=== PATIENT | female | born 1945 | race Caucasian/White ===

== ENCOUNTER 2016-10-29 11:58 | Inpatient (IN) | payer MEDICARE, OTHER ==
[~2016-10-29] VITALS: Ht 165.1 cm; Wt 77.0 kg
[~2016-10-29 11:58] MED LIST: LANS30CA PO; LORA-186 PO; abdominal binder
--- NOTE | 2016-10-29 12:11 | ERA ---
ER Documentation Chief Complaint Date/Time DATE: 10/29/16 TIME: 12:11 Chief Complaint CHEST PAIN, BILAT ARM NUMBNESS &WEAKNESS, FATIGUE S/P TOTAL KNEE REPLACEMEN HPI The patient is a 71-year-old female, presenting to the ER because of feeling fatigued, bilateral hands and bilateral feet tingling for 2 days, dyspnea and chest tightness for 1 day. She also complained of vague diffuse abdominal discomfort with vomiting today, associated with constipation. She complains of dizziness, better when she closes her eye. She denies fever, chills, neck pain , chest pain with exertion of vomiting or diaphoresis, dysuria, diarrhea. She does not smoke nor drink. She had left knee arthroplasty about 10 days ago Past medical history: GERD, hypertension Past surgical history: Hysterectomy, vaginal and rectal prolapse, ROS All systems reviewed and are negative except as per history of present illness. Medications Home Meds Reported Medications Ondansetron Hcl* (Zofran*) 4 Mg Tab, 4 MG PO Q4H Y for NAUSEA AND OR VOMITING, TAB 10/29/16 Docusate Sodium (Col-Rite) 100 Mg Capsule, 200 MG PO DAILY, CAP 10/29/16 Famotidine* (Famotidine*) 20 Mg Tablet, 20 MG PO BID, #60 TAB 10/29/16 Tapentadol Hcl (Nucynta) 50 Mg Tablet, 50 MG PO Q4 Y for PAIN LEVEL 6-10, TAB 10/29/16 Olmesartan Medoxomil (Benicar) 20 Mg Tablet, 20 MG PO DAILY, #30 TAB 10/29/16 Gabapentin* (Gabapentin*) 100 Mg Capsule, 200 MG PO TID, #180 CAP 10/29/16 Discontinued Reported Medications Lansoprazole* (Lansoprazole*) 30 Mg Capsule.dr, 30 MG PO DAILY, CAP 02/03/15 Loratadine* (Claritin*) 10 Mg Tablet, 10 MG PO DAILY, TAB 02/03/15 Discontinued Scripts [abdominal binder] No Conflict Check Prov:MARK UECEDA MD 02/07/15 Allergies Allergies: Coded Allergies: codeine (Verified Allergy, Unknown, confusion, 02/04/15) Uncoded Allergies: ADHESIVE TAPE (Allergy, Severe, BLISTERS, 02/04/15) CT CONTRAST (Allergy, Severe, ANAPHYLAXIS, 02/04/15) IV IODINE (Allergy, Severe, ANAPHYLAXIS, 02/04/15) TOPICAL IODINE IS OK NUCLEAR MED CONTRAST (Allergy, Severe, ANAPHYLAXIS, 02/04/15) statin (Allergy, Unknown, severe pain, 02/04/15) PMhx/Soc History of Surgery: Yes (LUMBAR SPINE SURGERY,PARTIAL HYSTERECTOMY,APPENDECTOMY ) Anesthesia Reaction: No Hx Neurological Disorder: No Hx Respiratory Disorders: No Hx Cardiac Disorders: Yes (HYPERLIPIDEMIA) Hx Psychiatric Problems: No Hx Miscellaneous Medical Probl: Yes (VAGINAL AND RECTAL PROLAPSE REPAIR, CERVICAL CA) Hx Alcohol Use: Yes (1-2 GLASSES OF WINE DAILY) Hx Substance Use: No Hx Tobacco Use: No Physical Exam Vitals Vital Signs Date Time Temp Pulse Resp B/P Pulse Ox O2 Delivery O2 Flow Rate FiO2 10/29/16 12:24 Nasal Cannula 10/29/16 12:01 98.1 113 20 159/70 100 Physical Exam Const: No acute distress. Head: Atraumatic. Eyes: Normal Conjunctiva. ENT: Normal External Ears, Nose and Mouth. Neck: Full range of motion. No meningismus. Resp: Clear to auscultation bilaterally. Cardio: Regular tachycardic Abd: Soft, non distended, normal bowel sounds, non tender. Skin: No petechiae or rashes. Back: No midline or flank tenderness. Ext: Left knee is edematous, warm to touch, calf tenderness Neur: Awake and alert. No focal deficit Psych: Normal Mood and Affect. Result Diagram: 10/29/16 1230 10/29/16 1230 Results 24 hrs Laboratory Tests Test 10/29/16 12:30 10/29/16 13:42 White Blood Count 11.510^3/ul Red Blood Count 3.4610^6/ul Hemoglobin 9.4g/dl Hematocrit 28.9% Mean Corpuscular Volume 83.5fl Mean Corpuscular Hemoglobin 27.2pg Mean Corpuscular Hemoglobin Concent 32.5g/dl Red Cell Distribution Width 15.9% Platelet Count 24830^3/UL Mean Platelet Volume 9.0fl Neutrophils % 71.5% Lymphocytes % 15.9% Monocytes % 9.7% Eosinophils % 1.6% Basophils % 0.3% Nucleated Red Blood Cells % 0.0/100WBC Neutrophils # 8.210^3/ul Lymphocytes # 1.810^3/ul Monocytes # 1.110^3/ul Eosinophils # 0.210^3/ul Basophils # 0.010^3/ul Nucleated Red Blood Cells # 0.010^3/ul Prothrombin Time 13.0Sec Prothrombin Time Ratio 1.0 INR International Normalized Ratio 0.98 Activated Partial Thromboplast Time 31.4Sec D-Dimer 9884.41ng/ml D-Dimer Comment Sodium Level 128mmol/L Potassium Level 4.5mmol/L Chloride Level 93mmol/L Carbon Dioxide Level 26mmol/L Anion Gap 14 Blood Urea Nitrogen 14mg/dl Creatinine 0.71mg/dl Glucose Level 104mg/dl Calcium Level 9.5mg/dl Total Bilirubin 0.2mg/dl Direct Bilirubin 0.00mg/dl Indirect Bilirubin 0.2mg/dl Aspartate Amino Transf (AST/SGOT) 26IU/L Alanine Aminotransferase (ALT/SGPT) 27IU/L Alkaline Phosphatase 92IU/L Troponin I < 0.012ng/ml Total Protein 7.5g/dl Albumin 4.5g/dl Globulin 3.00g/dl Albumin/Globulin Ratio 1.50 Lipase 27U/L Bedside Urine pH (LAB) 7.0 Bedside Urine Protein (LAB) Negative Bedside Urine Glucose (UA) Negative Bedside Urine Ketones (LAB) Negative Bedside Urine Blood Negative Bedside Urine Nitrite (LAB) Negative Bedside Urine Leukocyte Esterase (L Negative Current Medications Medications (Trade) Dose Ordered Sig/Yen Route PRN Reason Start Time Stop Time Status Last Admin Dose Admin Iohexol (Omnipaque) 0 ml @ ud STK-MED ONCE .ROUTE 10/29/16 14:57 10/29/16 14:58 DC IV Flush (NS 10 ml) 10 ml STK-MED ONCE .ROUTE 10/29/16 14:57 10/29/16 14:58 DC Ondansetron HCl (Zofran Inj) 4 mg ONCE STAT IV 10/29/16 15:21 10/29/16 15:22 DC 10/29/16 15:25 Ondansetron HCl 4 mg 4 mg STK-MED ONCE .ROUTE 10/29/16 15:22 10/29/16 15:23 DC Acetaminophen 100 ml @ 400 mls/hr ONCE ONCE IVPB 10/29/16 15:30 10/29/16 15:44 DC 10/29/16 16:14 Piperacillin Sod/ Tazobactam Sod (Zosyn 3.375gm/ 100 ml (Pmx)) 100 ml @ 200 mls/hr ONCE ONCE IVPB 10/29/16 16:00 10/29/16 16:29 DC 10/29/16 15:59 Alprazolam (Xanax) 0.25 mg ONCE ONCE PO 10/29/16 16:00 10/29/16 16:01 DC 10/29/16 15:58 Enoxaparin Sodium (Lovenox) 80 mg ONCE SC 10/29/16 18:00 Procedures/MDM [place] [address] Radiology Main Line: [phone] DIAGNOSTIC IMAGING REPORT Patient: RISSA MICHEL : 1945 Age: 71 Sex: F MR #: [id number] DOS: 10/29/16 1211 Ordering MD: NUBIA LEONG MD Location: E/R Room/Bed: PROCEDURE: CHEST 1VW CLINICAL INDICATION: Chest pain TECHNIQUE: Single frontal view of the chest was obtained COMPARISON: 04/21/2014 FINDINGS: The cardiac size is normal. Mild atherosclerotic calcifications are demonstrated. There is no pulmonary vascular congestion. The lungs are clear. No consolidation, effusion, or pneumothorax. Mild degenerative changes of the visualized osseous structures are visualized. IMPRESSION: 1. No acute cardiopulmonary process. 2. Atherosclerosis. RPTAT:PP .Sage Lawson MD, Date Time Electronically viewed and signed by .Sage Lawson MD, on 10/29/2016 13:17 .V/ CC: NUBIA LEONG MD [place] [address] Radiology Main Line: [phone] DIAGNOSTIC IMAGING REPORT Patient: RISSA MICHEL : 1945 Age: 71 Sex: F MR #: [id number] DOS: 10/29/16 1225 Ordering MD: NUBIA LEONG MD Location: E/R Room/Bed: PROCEDURE: US left lower extremity veins. CLINICAL INDICATION: Left leg pain and swelling. Left total knee arthroplasty. TECHNIQUE: Multiple longitudinal and transverse images of the left lower extremity veins were obtained with walsh scale and color Doppler imaging. The common femoral vein, femoral vein, and popliteal vein were evaluated. 2D grayscale measurements with compression sonography, pulsed Doppler, color Doppler, and pulsed Doppler with augmentation. COMPARISON: No prior studies are available for comparison. FINDINGS: The left common femoral, femoral and popliteal veins are normally compressible throughout. Color flow demonstrates normal filling of the vessels. Normal waveforms are visualized and there is normal response to augmentation. IMPRESSION: 1. No evidence of deep vein thrombosis involving the left lower extremity. RPTAT: QQ .Jaden Cruz MD, MD Date Time Electronically viewed and signed by .Jaden Cruz MD, on 10/29/2016 13:45 .R/ CC: NUBIA LEONG MD [place] [address] Radiology Main Line: [phone] DIAGNOSTIC IMAGING REPORT Patient: RISSA MICHEL : 1945 Age: 71 Sex: F MR #: [id number] DOS: 10/29/16 1232 Ordering MD: NUBIA LEONG MD Location: E/R Room/Bed: PROCEDURE: XR Knee. CLINICAL INDICATION: Left knee pain TECHNIQUE: 3 images of the left knee are available for review. COMPARISON: None available FINDINGS: There is a total left knee arthroplasty in anatomic alignment. There is no evidence of acute fracture. Alignment is normal. Joint spaces are preserved. There is a small knee joint effusion. IMPRESSION: 1. No radiographic evidence of acute osseous abnormality noting a total left knee arthroplasty in anatomic alignment. 2. Small nonspecific knee joint effusion. RPTAT: UU .Vinicius Allison MD, MD Date Time Electronically viewed and signed by .Vinicius Allison MD, on 10/29/2016 13: 11 .K/ CC: NUBIA LEONG MD [place] [address] Radiology Main Line: [phone] DIAGNOSTIC IMAGING REPORT Patient: RISSA MICHEL : 1945 Age: 71 Sex: F MR #: [id number] DOS: 10/29/16 1447 Ordering MD: NUBIA LEONG MD Location: E/R Room/Bed: PROCEDURE: CT Brain without contrast. CLINICAL INDICATION: Headaches. Neurologic deficit TECHNIQUE: A CT of the brain was performed on multidetector high-resolution CT scanner utilizing axial sections from the skull base through the vertex without contrast. One or more of the following dose reduction techniques were used: Automated exposure control, Adjustment of the mA and/or kV according to patient size, and/or use of iterative reconstruction technique. DOSE: CTDI = 43 mGy and the DLP = 720 mGy-cm. COMPARISON: None available FINDINGS: No acute intracranial hemorrhage, significant mass effect or midline shift. The walsh-white differentiation is grossly preserved. Prominence of the cortical sulci and ventricles are related to mild cerebral volume loss. No significant opacification of the visualized paranasal sinuses or mastoids. IMPRESSION: No acute intracranial findings. Mild volume loss. RPTAT: AA .Mahendra Blackman MD, MD Date Time Electronically viewed and signed by .Mahendra Blackman MD, MD on 10/29/2016 15:34 .T/ CC: NUBIA LEONG MD [place] [address] Radiology Main Line: [phone] DIAGNOSTIC IMAGING REPORT Patient: RISSA MICHEL : 1945 Age: 71 Sex: F MR #: [id number] DOS: 10/29/16 1448 Ordering MD: NUBIA LEONG MD Location: E/R Room/Bed: PROCEDURE: CT Abdomen and Pelvis without contrast. CLINICAL INDICATION: Abdominal pain TECHNIQUE: CT scan of the abdomen and pelvis was performed on a multidetector high-resolution CT scanner without intravenous contrast. Coronal and sagittal reformatted images were obtained from the axial source images. Images were reviewed on a high-resolution PACS workstation. The total exam CTDI equals 17mGy and the total exam DLP equals 1031mGy-cm. One or more of the following dose reduction techniques were used: Automated exposure control, Adjustment of the mA and/or kV according to patient size, and/or use of iterative reconstruction technique. COMPARISON: None. FINDINGS: Evaluation of the solid organs is limited given the lack of intravenous contrast administration. The lung bases are clear. The liver, pancreas, spleen, and adrenals are grossly unremarkable. No focal pericholecystic inflammatory changes. No hydronephrosis. No renal or ureteral stone. No bowel obstruction. Appendix is not visualized. Colonic diverticulosis with pericolonic inflammatory stranding surrounding the distal descending colon. No drainable loculated fluid collection identified. No retroperitoneal lymphadenopathy or evidence of pneumoperitoneum. Aortoiliac atherosclerosis. Uterus is absent. Status post anterior interbody and posterior fusion L2-3 through L4-5. IMPRESSION: Acute distal descending colonic diverticulitis. No evidence of a drainable abscess. RPTAT: AA .Mahendra Blackman MD, Date Time Electronically viewed and signed by .Mahendra Blackman MD, on 10/29/2016 15:37 .T/ CC: NUBIA LEONG MD EKG: Read by emergency physician Rate/Rhythm: Sinus tachycardia 112 beats/min QRS, ST, T-waves: No ST elevation, no T inversion Impression: Abnormal EKG MEDICAL MAKING DECISION: The patient is a 71-year-old female, presenting with acute dizziness and headache of unclear etiology, acute diverticulitis, acute elevated d-dimer that is concerning for acute pulmonary embolism, acute hyponatremia, acute anxiety. She was treated with Zofran formalin IV for nausea , she requested Tylenol IV for her headache with good response, she was treated with Xanax 0.25 mg p.o. for acute anxiety and Zosyn IV for acute diverticulitis. She could not have CT angiogram due to a pulmonary embolism due to severe allergic reaction to CT contrast, VQ scan is pending to rule out pulmonary embolism. After discussing with admitting physician Dr. Moctezuma, who recommended Lovenox subcutaneously for probable acute pulmonary embolism Consultation: I did get a present with her general surgeon Dr. Euceda, who was made aware of the lab, treatment, the patient treatment. He accepted the consult Departure Diagnosis: Primary Impression: Dizziness Additional Impressions: Diverticulitis Hyponatremia Elevated d-dimer Anxiety Anemia Condition: Stable Comments I discussed the findings with the patient. I discussed the patient with her physician Dr. Moctezuma who was made aware of the lab, the treatment, the patient condition. The patient is admitted to laboratory at 5:40 PM The patient's blood pressure was elevated (>120/80) but appears stable without evidence of hypertension emergency or urgency. The patient was counseled about the risks of hypertension and urged to pursue outpatient monitoring and therapy within a week with their primary care physician. NUBIA LEONG MD Oct 29, 2016 12:11
[2016-10-29 12:46] LABS: ADD SCAN DIFF NO
[2016-10-29 12:47] LABS: BASOPHILS % 0.3 % (0.0-2.0); EOSINOPHILS # 0.2 10^3/ul (0.0-0.5); EOSINOPHILS % 1.6 % (0.0-7.0); HEMATOCRIT 28.9 % (37.0-47.0); HEMOGLOBIN 9.4 g/dl (12.0-16.0); LYMPHOCYTES # 1.8 10^3/ul (0.8-2.9); LYMPHOCYTES % 15.9 % (15.0-51.0); MEAN CORPUSCULAR HEMOGLOBIN 27.2 pg (29.0-33.0); MEAN CORPUSCULAR HGB CONC 32.5 g/dl (32.0-37.0); MEAN CORPUSCULAR VOLUME 83.5 fl (82.0-101.0); MONOCYTE # 1.1 10^3/ul (0.3-0.9); MONOCYTES % 9.7 % (0.0-11.0); NEUTROPHIL # 8.2 10^3/ul (1.6-7.5); NEUTROPHILS % 71.5 % (39.0-77.0); PLATELET COUNT 552 10^3/UL (140-415); RED BLOOD COUNT 3.46 10^6/ul (4.20-5.40); RED CELL DISTRIBUTION WIDTH 15.9 % (11.5-14.5); WHITE BLOOD COUNT 11.5 10^3/ul (4.8-10.8)
[2016-10-29] MEDS ORDERED: OLME20TA20 PO (13:01)
[2016-10-29] MEDS ORDERED: TAPE50TA5 PO (13:01)
[2016-10-29] MEDS ORDERED: FAMO20TA18 PO (13:01)
[2016-10-29] MEDS ORDERED: GABA100C14 PO (13:01)
[2016-10-29] MEDS ORDERED: DOCU100C59 PO (13:01)
[2016-10-29] MEDS ORDERED: ONDA-43 PO (13:02)
--- NOTE | 2016-10-29 13:11 | RADRPT ---
PROCEDURE: XR Knee. CLINICAL INDICATION: Left knee pain TECHNIQUE: 3 images of the left knee are available for review. COMPARISON: None available FINDINGS: There is a total left knee arthroplasty in anatomic alignment. There is no evidence of acute fractu re. Alignment is normal. Joint spaces are preserved. There is a small knee joint effusion. IMPRESSION: 1. No radiographic evidence of acute osseous abnormality noting a total left knee arthroplasty in an atomic alignment. 2. Small nonspecific knee joint effusion. RPTAT: UU .Vinicius Allison MD, MD Date Time Electronically viewed and signed by .Vinicius Allison MD, MD on 10/29/2016 13:11 .K/
[2016-10-29 13:17] LABS: INR 0.98; PARTIAL THROMBOPLASTIN TIME 31.4 Sec (25.0-35.0)
--- NOTE | 2016-10-29 13:18 | RADRPT ---
PROCEDURE: CHEST 1VW CLINICAL INDICATION: Chest pain TECHNIQUE: Single frontal view of the chest was obtained COMPARISON: 04/21/2014 FINDINGS: The cardiac size is normal. Mild atherosclerotic calcifications are demonstrated. There is no pulmonary vascular congestion. The lungs are clear. No consolidation, effusion, or pneumothorax. Mild degenerative changes of the visualized osseous structures are visualized. IMPRESSION: 1. No acute cardiopulmonary process. 2. Atherosclerosis. RPTAT:PP .Sage Lawson MD, MD Date Time Electronically viewed and signed by .Sage Lawson MD, on 10/29/2016 13:17 .V/
[2016-10-29 13:39] LABS: URINE BLOOD (Dip) POC Negative (NEGATIVE)
--- NOTE | 2016-10-29 13:45 | RADRPT ---
PROCEDURE: US left lower extremity veins. CLINICAL INDICATION: Left leg pain and swelling. Left total knee arthroplasty. TECHNIQUE: Multiple longitudinal and transverse images of the left lower extremity veins were obta ined with walsh scale and color Doppler imaging. The common femoral vein, femoral vein, and popliteal vein were evaluated. 2D grayscale measurements with compression sonography, pulsed Doppler, color D oppler, and pulsed Doppler with augmentation. COMPARISON: No prior studies are available for comparison. FINDINGS: The left common femoral, femoral and popliteal veins are normally compressible throughout. Color fl ow demonstrates normal filling of the vessels. Normal waveforms are visualized and there is normal response to augmentation. IMPRESSION: 1. No evidence of deep vein thrombosis involving the left lower extremity. RPTAT: QQ .Jaden Cruz MD, MD Date Time Electronically viewed and signed by .Jaden Cruz MD, MD on 10/29/2016 13:45 .R/
[2016-10-29 13:59] LABS: ALBUMIN 4.5 g/dl (3.3-4.9); ALBUMIN/GLOBULIN RATIO 1.5; BILIRUBIN,INDIRECT 0.2 mg/dl (0-1.1); BILIRUBIN,TOTAL 0.2 mg/dl (0.2-1.3); CALCIUM 9.5 mg/dl (8.4-10.2); CREATININE 0.71 mg/dl (0.44-1.00); POTASSIUM 4.5 mmol/L (3.5-5.1); TOTAL PROTEIN 7.5 g/dl (6.1-8.1)
[2016-10-29 14:54] LABS: D-DIMER 9884.41 ng/ml (<460)
[2016-10-29] MEDS ORDERED: IOHEXOL 0 ML ONE (14:57)
[2016-10-29] MEDS ORDERED: ONDANSETRON 4 MG INJ IV STA ×2 (15:21→18:48)
[2016-10-29] MEDS ORDERED: ONDANSETRON 4 MG INJ ONE (15:22)
[2016-10-29] MEDS ORDERED: ACETAMINOPHEN 1000MG/100ML IV 100 ML IVPB ONE (15:30)
--- NOTE | 2016-10-29 15:34 | RADRPT ---
PROCEDURE: CT Brain without contrast. CLINICAL INDICATION: Headaches. Neurologic deficit TECHNIQUE: A CT of the brain was performed on multidetector high-resolution CT scanner utilizing a xial sections from the skull base through the vertex without contrast. One or more of the following dose reduction techniques were used: Automated exposure control, Adjustment of the mA and/or kV acc ording to patient size, and/or use of iterative reconstruction technique. DOSE: CTDI = 43 mGy and the DLP = 720 mGy-cm. COMPARISON: None available FINDINGS: No acute intracranial hemorrhage, significant mass effect or midline shift. The walsh-white different iation is grossly preserved. Prominence of the cortical sulci and ventricles are related to mild cerebral volume loss. No significant opacification of the visualized paranasal sinuses or mastoids. IMPRESSION: No acute intracranial findings. Mild volume loss. RPTAT: AA .Mahendra Blackman MD, Date Time Electronically viewed and signed by .Mahendra Blackman MD, on 10/29/2016 15:34 .T/
--- NOTE | 2016-10-29 15:37 | RADRPT ---
PROCEDURE: CT Abdomen and Pelvis without contrast. CLINICAL INDICATION: Abdominal pain TECHNIQUE: CT scan of the abdomen and pelvis was performed on a multidetector high-resolution CT s canner without intravenous contrast. Coronal and sagittal reformatted images were obtained from the axial source images. Images were reviewed on a high-resolution PACS workstation. The total exam CTD I equals 17mGy and the total exam DLP equals 1031mGy-cm. One or more of the following dose reduction techniques were used: Automated exposure control, Adjustment of the mA and/or kV according to patie nt size, and/or use of iterative reconstruction technique. COMPARISON: None. FINDINGS: Evaluation of the solid organs is limited given the lack of intravenous contrast administration. The lung bases are clear. The liver, pancreas, spleen, and adrenals are grossly unremarkable. No focal pericholecystic inflammatory changes. No hydronephrosis. No renal or ureteral stone. No bowel obstruction. Appendix is not visualized. Colonic diverticulosis with pericolonic inflammat ory stranding surrounding the distal descending colon. No drainable loculated fluid collection iden tified. No retroperitoneal lymphadenopathy or evidence of pneumoperitoneum. Aortoiliac atherosclerosis. Uterus is absent. Status post anterior interbody and posterior fusion L2-3 through L4-5. IMPRESSION: Acute distal descending colonic diverticulitis. No evidence of a drainable abscess. RPTAT: AA .Mahendra Blackman MD, MD Date Time Electronically viewed and signed by .Mahendra Blackman MD, on 10/29/2016 15:37 .T/
[2016-10-29] MEDS ORDERED: PIPER-TAZO 3.375 GM IV (PMX) 100 ML IVPB ONE ×2 (16:00→21:00)
[2016-10-29] MEDS ORDERED: ALPRAZOLAM 0.25 MG TAB PO ONE (16:00)
[2016-10-29] MEDS ORDERED: ENOXAPARIN 80 MG/0.8 ML SYG SC SCH (18:00)
[2016-10-29] MEDS ORDERED: FENTAnyl 50 MCG/ML VIAL IV ONE (19:00)
--- NOTE | 2016-10-29 19:41 | RADRPT ---
PROCEDURE: Ventilation-perfusion scan CLINICAL INDICATION: Chest pain and shortness of breath. History of left knee arthroplasty TECHNIQUE: The lung perfusion scan is performed following the intravenous injection of 4 mCi techn etium 99m MAA and 8 standard imaging projections are acquired. The lung ventilation scan is performed following the inhalation of 1 mCi technetium 99m DTPA aerosol and 8 imaging projections are acquired. The images are submitted to the PACS for review. COMPARISON: Chest x-ray from 10/29/2016. FINDINGS: Homogeneous distribution of radiopharmaceutical a lung perfusion scan is identified with no mismatch ed defects to suggest pulmonary embolism. There is normal distribution of aerosol with no focal brayan tilation defects are identified. No mismatched defects are identified when correlated with the chest x-ray from same day. RPTAT:HJJR IMPRESSION: 1. Low probability for pulmonary embolism. Physician Micah Date Time Electronically viewed and signed by Physician Micah on 10/29/2016 19:41 /
[2016-10-29 19:47] LABS: CREATINE KINASE 24 IU/L (23-200)
[2016-10-29 20:00] LABS: TROPONIN-I < 0.012 ng/ml (0.00-0.12)
[2016-10-29] MEDS ORDERED: NACL 0.9% 3 ML SYG IV SCH (20:30)
[2016-10-29] MEDS: SOD CHLORIDE 0.9% 1,000 ML IV SCH (20:53)
[2016-10-29] MEDS ORDERED: ONDANSETRON 4 MG INJ IV PRN ×3 (21:00)
[2016-10-29] MEDS ORDERED: ACETAMINOPHEN 325 MG TAB PO PRN (21:00)
--- NOTE | 2016-10-29 21:00 | HP ---
DATE OF ADMISSION: 10/29/2016 CHIEF COMPLAINT: Chest pain, bilateral arm numbness and weakness. HISTORY OF PRESENT ILLNESS: This 71-year-old female came to the emergency room today because of multiple complaints. Those complaints included fatigue, bilateral hand and feet tingling for 2 days, dyspnea, chest pain on the left side of her chest. She also has some lower abdominal pain. She denies vomiting. She has had constipation and had a hard bowel movement 2 days ago, which she attributes is causing her abdominal pain. She also complains of some dizziness and headache. She denies fever, chills, neck pain, vomiting, diarrhea , dysuria. She is now 10 days postop a left total knee replacement by Dr. Carlos A Campbell at [facility]. PAST MEDICAL HISTORY: Remarkable for gastroesophageal reflux disease, hypertension, lower GI bleed in 1998, status post blood transfusion. She was told she had diverticulosis and has had 2 other bleeds, the last in 2003; hyperlipidemia. She had a CT calcium score of 0 in 07/2016. SURGICAL HISTORY: Hallux valgus 1979, right and left; vision correction, partial hysterectomy for cervical cancer, bilateral breast cysts, appendectomy in 1998, anterior, posterior vaginal and rectal prolapse repair in 1994, left knee arthroscopic surgery, ventral and periumbilical hernia repair in 01/2015, shoulder surgery in 2009. Lumbar spine surgery. FAMILY HISTORY: Father with known heart disease and hypercholesterolemia. Mother, colon cancer. Maternal grandmother heart disease. SOCIAL HISTORY: She does not smoke, does not use recreational drugs. She does drink alcohol 1 to 2 glasses of wine a day. CURRENT MEDICATIONS: Include the followin. Zofran 4 mg p.o. q.4 hours p.r.n. nausea or vomiting. 2. Docusate sodium 100 mg 2 capsules a day. 3. Famotidine 20 mg twice a day. 4. Nucynta 50 mg every 4 hours p.r.n. pain. 5. Olmesartan 20 mg a day. 6. Gabapentin 200 mg 3 times a day. MEDICATION THAT WAS DISCONTINUED: 1. Lansoprazole. 2. Loratadine. ALLERGIES: CODEINE AND SOME OTHER NARCOTICS CAUSE NAUSEA AND VOMITING. ALLERGIES TO CT CONTRAST MATERIAL. PHYSICAL EXAMINATION: GENERAL: At this time reveals an ill-appearing female in no apparent distress. VITAL SIGNS: Temperature 98.1, pulse of 113, respirations 20, blood pressure 159/70, O2 saturation 100% on room air. HEENT: Head normocephalic. Eyes: Extraocular muscles intact. NOSE AND MOUTH: Normal. NECK: Supple. No neck vein distention. LUNGS: Clear to auscultation. HEART: Regular rhythm. No murmurs, gallops, or rubs. ABDOMEN: Soft, but tender in both right and left lower quadrants. There is no rebound tenderness. Bowel sounds are active. EXTREMITIES: No peripheral edema. NEUROLOGIC: Grossly intact. LABORATORY DATA: White blood count 11,500; hemoglobin 9.4, hematocrit 28.9. Sodium 128, potassium 4.5, chloride 93, CO2 of 26, BUN 14, creatinine 0.7. Chest x-ray: No acute cardiopulmonary process. The patient did have a CAT scan of the abdomen in the emergency room, which was read as showing acute distal descending colonic diverticulitis, no evidence of a drainable abscess. A ventilation perfusion lung scan low probability for pulmonary embolism. Brain CT: No acute intracranial findings. Knee x-ray: No acute radiologic evidence of acute osseous abnormality noted and the left knee arthroplasty in anatomic alignment. Lower extremity venous study which did not show DVT. IMPRESSION: 1. Acute diverticulitis. 2. Left knee pain due to recent surgery. L Total Knee Replacement 3. Hyponatremia. 4. Anemia after surgery 10 days ago. 5. Hypertension. 6. Headache 7. Dizziness PLAN: 1. Admit to telemetry floor. 2. Lovenox to be given subcutaneous daily for DVT prophylaxis. 3. Antibiotics for diverticulitis. 4. Resume some routine medications. 5. Labs, troponin in a.m. 6. Urinalysis and urine electrolytes. 7. IV sodium chloride. 8. consult Dr Campbell , ortho Dictated By: KRISTAN MRATE MD, ND/SHENG Conf#: [id number] DID#: [id number] FRANCIS
[2016-10-29] MEDS: FAMOTIDINE 20 MG TAB PO SCH (21:31)
[2016-10-29] MEDS: GABAPENTIN 100 MG CAP PO SCH (21:44)
[2016-10-29] MEDS: FENTAnyl 50 MCG/ML VIAL IV PRN (22:43)
[2016-10-30] VITALS (11 sets, daily range): BP systolic 120–138; BP diastolic 58–70; PULSE 88–95; RESP 16–18; TEMP 98.7; Ht 165.1 cm; Wt 77.0 kg
[2016-10-30 01:42] LABS: CREATINE KINASE 22 IU/L (23-200)
[2016-10-30 01:56] LABS: CK-MB 0.47 ng/ml (0.0-2.4)
[2016-10-30 01:59] LABS: TROPONIN-I < 0.012 ng/ml (0.00-0.12)
[2016-10-30] MEDS: FENTAnyl 50 MCG/ML VIAL IV PRN (03:38)
[2016-10-30] MEDS: ACETAMINOPHEN 325 MG TAB PO PRN ×3 (06:33→20:29)
--- NOTE | 2016-10-30 08:02 | PN ---
Date/Time of Note Date/Time of Note DATE: 10/30/16 TIME: 07:51 Assessment/Plan VTE Prophylaxis VTE Prophylaxis Intervention: LMWH Lines/Catheters IV Catheter Type (from [facility]): Saline Lock Assessment/Plan Chief Complaint/Hosp Course 1. Acute diverticulitis , on antibiotics , less abdominal pain 2. L knee pain S/P TKR . Call Dr Campbell , start PT , start Nycenta 3. Hyponatremia , labs pending . 4. headache , CT scan of brain is negative Problems: Subjective 24 Hr Interval Summary Free Text/Dictation She is feeling better . Less abdominal pain . She still has a headache and L knee pain . Respiratory: no complaints Cardiovascular: no complaints Gastrointestinal: pain Musculoskeletal: bone/joint pain Exam/Review of Systems Vital Signs Vitals Vital Signs Date Time Temp Pulse Resp B/P Pulse Ox O2 Delivery O2 Flow Rate FiO2 10/30/16 05:30 97.9 90 18 129/67 97 Room Air Intake and Output 10/29/16 10/29/16 10/30/16 15:00 23:00 07:00 Intake Total 200 ml Balance 200 ml Exam L knee S/P L TKR Constitutional: alert, oriented, well developed Respiratory: clear to auscultation, normal air movement Cardiovascular: regular rate and rhythm Gastrointestinal: bowel sounds, soft, tender Musculoskeletal: nl extremities to inspection Results Result Diagram: 10/29/16 1230 10/29/16 1230 Results 24 hrs Laboratory Tests Test 10/29/16 12:30 10/29/16 13:42 10/29/16 18:49 10/30/16 00:26 White Blood Count 11.5 #H Red Blood Count 3.46 L Hemoglobin 9.4 L Hematocrit 28.9 L Mean Corpuscular Volume 83.5 Mean Corpuscular Hemoglobin 27.2 L Mean Corpuscular Hemoglobin Concent 32.5 Red Cell Distribution Width 15.9 H Platelet Count 552 H Mean Platelet Volume 9.0 Neutrophils % 71.5 Lymphocytes % 15.9 Monocytes % 9.7 Eosinophils % 1.6 Basophils % 0.3 Nucleated Red Blood Cells % 0.0 Neutrophils # 8.2 H Lymphocytes # 1.8 Monocytes # 1.1 H Eosinophils # 0.2 Basophils # 0.0 Nucleated Red Blood Cells # 0.0 Prothrombin Time 13.0 Prothrombin Time Ratio 1.0 INR International Normalized Ratio 0.98 Activated Partial Thromboplast Time 31.4 D-Dimer 9884.41 H D-Dimer Comment Sodium Level 128 L Potassium Level 4.5 Chloride Level 93 L Carbon Dioxide Level 26 Anion Gap 14 Blood Urea Nitrogen 14 Creatinine 0.71 Glucose Level 104 Calcium Level 9.5 Total Bilirubin 0.2 Direct Bilirubin 0.00 Indirect Bilirubin 0.2 Aspartate Amino Transf (AST/SGOT) 26 Alanine Aminotransferase (ALT/SGPT) 27 Alkaline Phosphatase 92 Troponin I < 0.012 < 0.012 < 0.012 Total Protein 7.5 Albumin 4.5 Globulin 3.00 Albumin/Globulin Ratio 1.50 Lipase 27 Bedside Urine pH (LAB) 7.0 Bedside Urine Protein (LAB) Negative Bedside Urine Glucose (UA) Negative Bedside Urine Ketones (LAB) Negative Bedside Urine Blood Negative Bedside Urine Nitrite (LAB) Negative Bedside Urine Leukocyte Esterase (L Negative Creatine Kinase 24 22 L Creatine Kinase Index 1.7 2.1 Creatinine Kinase MB (Mass) 0.40 0.47 Medications Medications Current Medications Sodium Chloride (NS) 1,000 ml @ 80 mls/hr [id number] IV Last administered on 10/29 20:53; Admin Dose 80 MLS/HR; Start 10/29/16 at 20:24 Enoxaparin Sodium (Lovenox) 40 mg DAILY SC ; Start 10/30/16 at 09:00 Docusate Sodium (Colace) 200 mg DAILY PO ; Start 10/30/16 at 09:00 Famotidine (Pepcid) 20 mg DAILY PO Last administered on 10/29/16 21:31; Admin Dose 20 MG; Start 10/29/16 at 21:00 Gabapentin (Neurontin) 200 mg TID PO Last administered on 10/29/16 21:44; Admin Dose 200 MG; Start 10/29/16 at 21:00 Losartan Potassium (Cozaar) 100 mg DAILY PO ; Start 10/30/16 at 09:00 Acetaminophen (Tylenol Tab) 650 mg Q4H PRN PO PAIN Last administered on 06:33; Admin Dose 650 MG; Start 10/29/16 at 21:00 Ondansetron HCl (Zofran Inj) 4 mg Q4H PRN IV NAUSEA AND/OR VOMITING; Start at 21:00 Fentanyl (Sublimaze) 25 mcg Q4H PRN IV SEVERE PAIN Last administered on t 03:38; Admin Dose 25 MCG; Start 10/29/16 at 21:00 KRISTAN MARTE MD Oct 30, 2016 08:02
--- NOTE | 2016-10-30 08:53 | CONS ---
Date/Time of Note Date/Time of Note DATE: 10/30/16 TIME: 08:43 Assessment/Plan Assessment/Plan Chief Complaint/Hosp Course 1) diverticulitis continue with zosyn at present send stool for VRE 2) s/p L TKR pt states pain is worse but no sign of cellulitis to site ortho to see patient 3) hx of cervical CA and partial hysterectomy 4) hx of vaginal/rectal prolapse repair 5) hx of appy Problems: Consultation Date/Type/Reason Admit Date/Time Oct 29, 2016 at 17:55 Date of Consultation: Oct 30, 2016 Type of Consultation: ID Hx of Present Illness pt had L tkr about 10 days ago at [facility]. She has been constipated. her last BM was 4 days ago and it was painful She has fatigue and L knee pain She has abd pain but no V. No SOB, cough. She has FERNANDEZ she denies F, C no dysuria Respiratory: no complaints Cardiovascular: no complaints Gastrointestinal: pain Musculoskeletal: bone/joint pain Past Medical History GERD, HTN, lower GI bleed, hyperlipidemia, cervical CA, silent [place] Past Surgical History R toe surgery, partial hysterectomy, appy, vaginal/rectal prolapse repair, hernia repair, shoulder surgery, lumbar spine surgery Social History Smoking Status: Former smoker Exam/Review of Systems Vital Signs Vitals Vital Signs Date Time Temp Pulse Resp B/P Pulse Ox O2 Delivery O2 Flow Rate FiO2 10/30/16 08:23 88 10/30/16 07:58 98.0 16 138/70 98 10/30/16 05:30 Room Air Intake and Output 10/29/16 10/29/16 10/30/16 15:00 23:00 07:00 Intake Total 200 ml Balance 200 ml Exam Constitutional: alert, oriented Head: normocephalic ENMT: mucosa pink and moist Respiratory: clear to auscultation Cardiovascular: regular rate and rhythm Gastrointestinal: soft, tender (tender to cosmo lower quadrats) Extremities: other (L knee is swollen with increase in heat, surgical site is dry, intact and no redness) Results Result Diagram: 10/29/16 1230 10/29/16 1230 Results 24 hrs Laboratory Tests Test 10/29/16 12:30 10/29/16 13:42 10/29/16 18:49 10/30/16 00:26 White Blood Count 11.5 #H Red Blood Count 3.46 L Hemoglobin 9.4 L Hematocrit 28.9 L Mean Corpuscular Volume 83.5 Mean Corpuscular Hemoglobin 27.2 L Mean Corpuscular Hemoglobin Concent 32.5 Red Cell Distribution Width 15.9 H Platelet Count 552 H Mean Platelet Volume 9.0 Neutrophils % 71.5 Lymphocytes % 15.9 Monocytes % 9.7 Eosinophils % 1.6 Basophils % 0.3 Nucleated Red Blood Cells % 0.0 Neutrophils # 8.2 H Lymphocytes # 1.8 Monocytes # 1.1 H Eosinophils # 0.2 Basophils # 0.0 Nucleated Red Blood Cells # 0.0 Prothrombin Time 13.0 Prothrombin Time Ratio 1.0 INR International Normalized Ratio 0.98 Activated Partial Thromboplast Time 31.4 D-Dimer 9884.41 H D-Dimer Comment Sodium Level 128 L Potassium Level 4.5 Chloride Level 93 L Carbon Dioxide Level 26 Anion Gap 14 Blood Urea Nitrogen 14 Creatinine 0.71 Glucose Level 104 Calcium Level 9.5 Total Bilirubin 0.2 Direct Bilirubin 0.00 Indirect Bilirubin 0.2 Aspartate Amino Transf (AST/SGOT) 26 Alanine Aminotransferase (ALT/SGPT) 27 Alkaline Phosphatase 92 Troponin I < 0.012 < 0.012 < 0.012 Total Protein 7.5 Albumin 4.5 Globulin 3.00 Albumin/Globulin Ratio 1.50 Lipase 27 Bedside Urine pH (LAB) 7.0 Bedside Urine Protein (LAB) Negative Bedside Urine Glucose (UA) Negative Bedside Urine Ketones (LAB) Negative Bedside Urine Blood Negative Bedside Urine Nitrite (LAB) Negative Bedside Urine Leukocyte Esterase (L Negative Creatine Kinase 24 22 L Creatine Kinase Index 1.7 2.1 Creatinine Kinase MB (Mass) 0.40 0.47 Medications Medications Current Medications Sodium Chloride (NS) 1,000 ml @ 80 mls/hr [id number] IV Last administered on 10/29 20:53; Admin Dose 80 MLS/HR; Start 10/29/16 at 20:24 Enoxaparin Sodium (Lovenox) 40 mg DAILY SC ; Start 10/30/16 at 09:00 Docusate Sodium (Colace) 200 mg DAILY PO ; Start 10/30/16 at 09:00 Famotidine (Pepcid) 20 mg DAILY PO Last administered on 10/29/16 21:31; Admin Dose 20 MG; Start 10/29/16 at 21:00 Gabapentin (Neurontin) 200 mg TID PO Last administered on 10/29/16 21:44; Admin Dose 200 MG; Start 10/29/16 at 21:00 Losartan Potassium (Cozaar) 100 mg DAILY PO ; Start 10/30/16 at 09:00 Acetaminophen (Tylenol Tab) 650 mg Q4H PRN PO PAIN Last administered on 06:33; Admin Dose 650 MG; Start 10/29/16 at 21:00 Ondansetron HCl (Zofran Inj) 4 mg Q4H PRN IV NAUSEA AND/OR VOMITING; Start at 21:00 Fentanyl (Sublimaze) 25 mcg Q4H PRN IV SEVERE PAIN Last administered on 03:38; Admin Dose 25 MCG; Start 10/29/16 at 21:00 Miscellaneous Information (* Miscellaneous Pharmacy Order) ONCE XX ; Start at 08:00 Ondansetron HCl 4 mg 4 mg Q4 PRN ODT NAUSEA AND/OR VOMITING; Start 10/30/16 at 10:00 Piperacillin Sod/ Tazobactam Sod (Zosyn 3.375gm/ 100 ml (Pmx)) 100 ml @ 200 mls /hr Q6 IVPB ; Start 10/30/16 at 12:00 JELANI DIAZ MD Oct 30, 2016 08:53
[2016-10-30] MEDS: SOD CHLORIDE 0.9% 1,000 ML IV SCH ×2 (08:54→20:32)
[2016-10-30] MEDS: LOSARTAN 50 MG TAB PO SCH (09:00)
[2016-10-30] MEDS: GABAPENTIN 100 MG CAP PO SCH ×3 (09:13→20:29)
[2016-10-30] MEDS: FAMOTIDINE 20 MG TAB PO SCH (09:14)
[2016-10-30] MEDS: DOCUSATE SODIUM 100 MG CAP PO SCH (09:26)
[2016-10-30] MEDS: ENOXAPARIN 40 MG/0.4 ML SYG SC SCH (09:37)
[2016-10-30 09:40] LABS: ADD SCAN DIFF NO
[2016-10-30 09:46] LABS: BASOPHILS % 0.3 % (0.0-2.0); EOSINOPHILS # 0.1 10^3/ul (0.0-0.5); EOSINOPHILS % 0.8 % (0.0-7.0); HEMATOCRIT 28.6 % (37.0-47.0); HEMOGLOBIN 9.2 g/dl (12.0-16.0); LYMPHOCYTES # 1.2 10^3/ul (0.8-2.9); LYMPHOCYTES % 10.6 % (15.0-51.0); MEAN CORPUSCULAR HEMOGLOBIN 26.6 pg (29.0-33.0); MEAN CORPUSCULAR HGB CONC 32.2 g/dl (32.0-37.0); MEAN CORPUSCULAR VOLUME 82.7 fl (82.0-101.0); MEAN PLATELET VOLUME 9.3 fl (7.4-10.4); MONOCYTE # 0.7 10^3/ul (0.3-0.9); MONOCYTES % 6.1 % (0.0-11.0); NEUTROPHIL # 8.9 10^3/ul (1.6-7.5); NEUTROPHILS % 81.6 % (39.0-77.0); PLATELET COUNT 495 10^3/UL (140-415); RED BLOOD COUNT 3.46 10^6/ul (4.20-5.40); RED CELL DISTRIBUTION WIDTH 15.9 % (11.5-14.5); WHITE BLOOD COUNT 10.9 10^3/ul (4.8-10.8)
[2016-10-30] MEDS ORDERED: ONDANSETRON (ODT) 4 MG TAB ODT PRN (10:00)
[2016-10-30 10:03] LABS: ALBUMIN 4.2 g/dl (3.3-4.9); ALBUMIN/GLOBULIN RATIO 1.5; BILIRUBIN,INDIRECT 0.3 mg/dl (0-1.1); BILIRUBIN,TOTAL 0.3 mg/dl (0.2-1.3); CALCIUM 8.8 mg/dl (8.4-10.2); CREATININE 0.53 mg/dl (0.44-1.00); PHOSPHORUS 3.8 mg/dl (2.5-4.9); POTASSIUM 3.7 mmol/L (3.5-5.1)
[2016-10-30] MEDS: NUCYNTA 50 MG PO PRN ×3 (10:30→19:15)
[2016-10-30] MEDS: PIPER-TAZO 3.375 GM IV (PMX) 100 ML IVPB SCH ×2 (12:20→18:26)
[2016-10-30] MEDS: ONDANSETRON (ODT) 4 MG TAB ODT PRN ×2 (15:19→19:14)
[2016-10-30] MEDS ORDERED: BISACODYL 10 MG SUPP PR PRN (17:30)
[2016-10-30] MEDS ORDERED: MAGNESIUM HYDROXIDE 30ML CUP PO PRN (17:30)
[2016-10-30 18:57] LABS: IRON 26 ug/dl (35-150)
[2016-10-30 19:07] LABS: TOTAL IRON BINDING CAPACITY 311 ug/dl (241-421)
[2016-10-31] MEDS: ONDANSETRON (ODT) 4 MG TAB ODT PRN ×2 (02:05→08:17)
[2016-10-31] MEDS: NUCYNTA 50 MG PO PRN ×2 (02:06→08:16)
[2016-10-31] MEDS: PIPER-TAZO 3.375 GM IV (PMX) 100 ML IVPB SCH ×5 (05:55→23:55)
[2016-10-31 06:04] LABS: ADD SCAN DIFF NO
[2016-10-31 06:13] LABS: BASOPHILS % 0.4 % (0.0-2.0); EOSINOPHILS # 0.2 10^3/ul (0.0-0.5); HEMATOCRIT 29.1 % (37.0-47.0); HEMOGLOBIN 9.1 g/dl (12.0-16.0); LYMPHOCYTES # 1.4 10^3/ul (0.8-2.9); LYMPHOCYTES % 13.6 % (15.0-51.0); MEAN CORPUSCULAR HEMOGLOBIN 26.5 pg (29.0-33.0); MEAN CORPUSCULAR HGB CONC 31.3 g/dl (32.0-37.0); MEAN CORPUSCULAR VOLUME 84.6 fl (82.0-101.0); MEAN PLATELET VOLUME 9.4 fl (7.4-10.4); MONOCYTE # 1.1 10^3/ul (0.3-0.9); MONOCYTES % 10.3 % (0.0-11.0); NEUTROPHIL # 7.6 10^3/ul (1.6-7.5); NEUTROPHILS % 73.2 % (39.0-77.0); PLATELET COUNT 502 10^3/UL (140-415); RED BLOOD COUNT 3.44 10^6/ul (4.20-5.40); RED CELL DISTRIBUTION WIDTH 15.9 % (11.5-14.5); WHITE BLOOD COUNT 10.4 10^3/ul (4.8-10.8)
[2016-10-31 06:54] LABS: ALBUMIN 4.2 g/dl (3.3-4.9); ALBUMIN/GLOBULIN RATIO 1.55; BILIRUBIN,INDIRECT 0.3 mg/dl (0-1.1); BILIRUBIN,TOTAL 0.3 mg/dl (0.2-1.3); CALCIUM 8.8 mg/dl (8.4-10.2); CREATININE 0.57 mg/dl (0.44-1.00); POTASSIUM 4.5 mmol/L (3.5-5.1); TOTAL PROTEIN 6.9 g/dl (6.1-8.1)
[2016-10-31 07:33] VITALS: BP 134/63; RESP 18
--- NOTE | 2016-10-31 07:43 | CONS ---
Date/Time of Note Date/Time of Note DATE: 10/31/16 TIME: 07:40 Assessment/Plan Assessment/Plan Chief Complaint/Hosp Course 1) diverticulitis continue with zosyn at present send stool for VRE 10/31 - WBC is back to normal on zosyn alone await better clinical response before changing to po antibiotics 2) s/p L TKR pt states pain is worse but no sign of cellulitis to site ortho to see patient 10/31 - her ortho doctor does not have privledges here, consider ortho consult regarding L knee pain 3) hx of cervical CA and partial hysterectomy 4) hx of vaginal/rectal prolapse repair 5) hx of appy Problems: Consultation Date/Type/Reason Admit Date/Time Oct 29, 2016 at 17:55 Initial Consult Date 10/30/16 Type of Consultation: ID [id number] HR Interval Summary Free Text/Dictation pt has off an on pain to abd but it is hurting this a.m. no V, SOB she is able to eat ok knee is still hurting and Dr. partida does not have privledges here and cannnot see her pt had one soft BM yesterday Exam/Review of Systems Vital Signs Vitals Vital Signs Date Time Temp Pulse Resp B/P Pulse Ox O2 Delivery O2 Flow Rate FiO2 10/31/16 07:33 98.9 85 18 134/63 96 10/30/16 20:00 Room Air Intake and Output 10/30/16 10/30/16 10/31/16 15:00 23:00 07:00 Intake Total 100 ml 1620 ml 850 ml Balance 100 ml 1620 ml 850 ml Exam Constitutional: alert, oriented Eyes: nl sclera ENMT: mucosa pink and moist Respiratory: clear to auscultation Cardiovascular: regular rate and rhythm Gastrointestinal: other (lower abd pain), soft Extremities: other (L knee is bandaged) Results Result Diagram: 10/31/16 0435 10/31/16 0435 Results 24 hrs Laboratory Tests Test 10/30/16 09:27 10/31/16 04:35 White Blood Count 10.9 H 10.4 Red Blood Count 3.46 L 3.44 L Hemoglobin 9.2 L 9.1 L Hematocrit 28.6 L 29.1 L Mean Corpuscular Volume 82.7 84.6 Mean Corpuscular Hemoglobin 26.6 L 26.5 L Mean Corpuscular Hemoglobin Concent 32.2 31.3 L Red Cell Distribution Width 15.9 H 15.9 H Platelet Count 495 H 502 H Mean Platelet Volume 9.3 9.4 Neutrophils % 81.6 H 73.2 Lymphocytes % 10.6 L 13.6 L Monocytes % 6.1 10.3 Eosinophils % 0.8 2.0 Basophils % 0.3 0.4 Nucleated Red Blood Cells % 0.0 0.0 Neutrophils # 8.9 H 7.6 H Lymphocytes # 1.2 1.4 Monocytes # 0.7 1.1 H Eosinophils # 0.1 0.2 Basophils # 0.0 0.0 Nucleated Red Blood Cells # 0.0 0.0 Sodium Level 133 L 135 Potassium Level 3.7 4.5 Chloride Level 99 102 Carbon Dioxide Level 24 28 Anion Gap 14 10 Blood Urea Nitrogen 8 8 Creatinine 0.53 0.57 Glucose Level 142 88 # Calcium Level 8.8 8.8 Phosphorus Level 3.8 Magnesium Level 2.0 Iron Level 26 L Total Iron Binding Capacity 311 Percent Iron Saturation 8 L Ferritin 124.0 Total Bilirubin 0.3 0.3 Direct Bilirubin 0.00 0.00 Indirect Bilirubin 0.3 0.3 Aspartate Amino Transf (AST/SGOT) 21 20 Alanine Aminotransferase (ALT/SGPT) 31 29 Alkaline Phosphatase 80 77 Total Protein 7.0 6.9 Albumin 4.2 4.2 Globulin 2.80 2.70 Albumin/Globulin Ratio 1.50 1.55 Medications Medications Current Medications Sodium Chloride (NS) 1,000 ml @ 80 mls/hr [id number] IV Last administered on 10/29 20:53; Admin Dose 80 MLS/HR; Start 10/29/16 at 20:24 Enoxaparin Sodium (Lovenox) 40 mg DAILY SC Last administered on 10/30/16 09:37 ; Admin Dose 40 MG; Start 10/30/16 at 09:00 Docusate Sodium (Colace) 200 mg DAILY PO Last administered on 10/30/16 09:26; Admin Dose 200 MG; Start 10/30/16 at 09:00 Famotidine (Pepcid) 20 mg DAILY PO Last administered on 10/30/16 09:14; Admin Dose 20 MG; Start 10/29/16 at 21:00 Gabapentin (Neurontin) 200 mg TID PO Last administered on 10/30/16 20:29; Admin Dose 200 MG; Start 10/29/16 at 21:00 Losartan Potassium (Cozaar) 100 mg DAILY PO ; Start 10/30/16 at 09:00 Acetaminophen (Tylenol Tab) 650 mg Q4H PRN PO PAIN Last administered on 20:29; Admin Dose 650 MG; Start 10/29/16 at 21:00 Ondansetron HCl 4 mg 4 mg Q4H PRN IV NAUSEA AND/OR VOMITING; Start 10/29/16 at 21:00 Piperacillin Sod/ Tazobactam Sod (Zosyn 3.375gm/ 100 ml (Pmx)) 100 ml @ 200 mls /hr Q6 IVPB Last administered on 10/31/16 05:55; Admin Dose 200 MLS/HR; Start 10/30/16 at 12:00 Patient Own Medication 1 ea Q4H PRN PO PAIN Last administered on 10/31/16 02: 06; Admin Dose 1 EA; Start 10/30/16 at 10:30 Ondansetron HCl (Zofran Odt) 4 mg Q4H PRN ODT BEFORE GIVING NUCYNTA Last administered on 10/31/16 02:05; Admin Dose 4 MG; Start 10/30/16 at 10:30 Magnesium Hydroxide (Milk Of Mag) 30 ml BID PRN PO CONSTIPATION; Start at 17:30 Bisacodyl (Dulcolax Supp) 10 mg DAILY PRN [place] CONSTIPATION; Start 10/30/16 at 17 :30 JELANI DIAZ MD Oct 31, 2016 07:43
[2016-10-31] MEDS: FAMOTIDINE 20 MG TAB PO SCH (09:47)
[2016-10-31] MEDS: LOSARTAN 50 MG TAB PO SCH (09:48)
[2016-10-31] MEDS: DOCUSATE SODIUM 100 MG CAP PO SCH (09:48)
[2016-10-31] MEDS: GABAPENTIN 100 MG CAP PO SCH ×3 (09:48→20:43)
[2016-10-31] MEDS: ENOXAPARIN 40 MG/0.4 ML SYG SC SCH (09:50)
[2016-10-31] MEDS: ONDANSETRON (ODT) 4 MG TAB ODT SCH ×4 (12:36→23:55)
[2016-10-31] MEDS: NUCYNTA 50 MG PO SCH ×3 (12:37→20:03)
[2016-10-31] MEDS: SOD CHLORIDE 0.9% 1,000 ML IV SCH (12:38)
--- NOTE | 2016-10-31 13:48 | PN ---
Date/Time of Note Date/Time of Note DATE: 10/31/16 TIME: 13:35 Assessment/Plan VTE Prophylaxis VTE Prophylaxis Intervention: LMWH Lines/Catheters IV [facility] Type (from [facility] Saline Lock Urinary Cath still in place: No Assessment/Plan Chief Complaint/Hosp Course 1. Acute diverticulitis , on antibiotics , less abdominal pain , having some constipation 2. L knee pain S/P TKR . Dr Campbell called , start PT , start Nucynta 3. Hyponatremia , corrected . 4. headache , CT scan of brain is negative Problems: Subjective 24 Hr Interval Summary Free Text/Dictation She is feeling better , less abdominal pain . c/o constipation . Having some L knee pain . Respiratory: no complaints Cardiovascular: no complaints Gastrointestinal: constipation, pain Musculoskeletal: bone/joint pain Exam/Review of Systems Vital Signs Vitals Vital Signs Date Time Temp Pulse Resp B/P Pulse Ox O2 Delivery O2 Flow Rate FiO2 10/31/16 07:33 98.9 85 18 134/63 96 10/30/16 20:00 Room Air Intake and Output 10/30/16 10/30/16 10/31/16 15:00 23:00 07:00 Intake Total 100 ml 1620 ml 850 ml Balance 100 ml 1620 ml 850 ml Exam s/p L TKR Constitutional: alert, oriented, well developed Respiratory: clear to auscultation, normal air movement Cardiovascular: nl pulses, regular rate and rhythm Gastrointestinal: distended, tender Musculoskeletal: nl extremities to inspection Results Result Diagram: 10/31/16 0435 10/31/16 0435 Results 24 hrs Laboratory Tests Test 10/30/16 21:30 10/31/16 04:35 Urine Random Sodium 120 H White Blood Count 10.4 Red Blood Count 3.44 L Hemoglobin 9.1 L Hematocrit 29.1 L Mean Corpuscular Volume 84.6 Mean Corpuscular Hemoglobin 26.5 L Mean Corpuscular Hemoglobin Concent 31.3 L Red Cell Distribution Width 15.9 H Platelet Count 502 H Mean Platelet Volume 9.4 Neutrophils % 73.2 Lymphocytes % 13.6 L Monocytes % 10.3 Eosinophils % 2.0 Basophils % 0.4 Nucleated Red Blood Cells % 0.0 Neutrophils # 7.6 H Lymphocytes # 1.4 Monocytes # 1.1 H Eosinophils # 0.2 Basophils # 0.0 Nucleated Red Blood Cells # 0.0 Sodium Level 135 Potassium Level 4.5 Chloride Level 102 Carbon Dioxide Level 28 Anion Gap 10 Blood Urea Nitrogen 8 Creatinine 0.57 Glucose Level 88 # Calcium Level 8.8 Total Bilirubin 0.3 Direct Bilirubin 0.00 Indirect Bilirubin 0.3 Aspartate Amino Transf (AST/SGOT) 20 Alanine Aminotransferase (ALT/SGPT) 29 Alkaline Phosphatase 77 Total Protein 6.9 Albumin 4.2 Globulin 2.70 Albumin/Globulin Ratio 1.55 Medications Medications Current Medications Sodium Chloride (NS) 1,000 ml @ 80 mls/hr [id number] IV Last administered on 10/31 12:38; Admin Dose 80 MLS/HR; Start 10/29/16 at 20:24 Enoxaparin Sodium (Lovenox) 40 mg DAILY SC Last administered on 10/31/16 09:50 ; Admin Dose 40 MG; Start 10/30/16 at 09:00 Docusate Sodium (Colace) 200 mg DAILY PO Last administered on 10/31/16 09:48; Admin Dose 200 MG; Start 10/30/16 at 09:00 Gabapentin (Neurontin) 200 mg TID PO Last administered on 10/31/16 12:36; Admin Dose 200 MG; Start 10/29/16 at 21:00 Losartan Potassium (Cozaar) 100 mg DAILY PO Last administered on 10/31/16 09: 48; Admin Dose 100 MG; Start 10/30/16 at 09:00 Acetaminophen (Tylenol Tab) 650 mg Q4H PRN PO PAIN Last administered on 20:29; Admin Dose 650 MG; Start 10/29/16 at 21:00 Ondansetron HCl 4 mg 4 mg Q4H PRN IV NAUSEA AND/OR VOMITING; Start 10/29/16 at 21:00 Piperacillin Sod/ Tazobactam Sod (Zosyn 3.375gm/ 100 ml (Pmx)) 100 ml @ 200 mls /hr Q6 IVPB Last administered on 10/31/16 12:37; Admin Dose 200 MLS/HR; Start 10/30/16 at 12:00 Magnesium Hydroxide (Milk Of Mag) 30 ml BID PRN PO CONSTIPATION; Start at 17:30 Bisacodyl (Dulcolax Supp) 10 mg DAILY PRN [place] CONSTIPATION; Start 10/30/16 at 17 :30 Famotidine (Pepcid) 20 mg DAILY@06 PO ; Start 11/01/16 at 06:00 Ondansetron HCl (Zofran Odt) 4 mg Q4H ODT Last administered on 10/31/16 12:36 ; Admin Dose 4 MG; Start 10/31/16 at 12:00 Patient Own Medication 1 ea 1 ea Q4H PO Last administered on 10/31/16 12:37; Admin Dose 1 EA; Start 10/31/16 at 12:00 Ferric Sodium Gluconate Complex/ Sodium Chloride (Ferrlecit/NS) 110 ml @ 100 mls/hr Q24H IVPB ; Start 10/31/16 at 14:00; Stop 11/02/16 at 15:05; Status UNV Polyethylene Glycol (Miralax) 17 gm DAILY PO ; Start 10/31/16 at 14:00; Status UNV KRISTAN MARTE MD Oct 31, 2016 13:46
[2016-10-31] MEDS: POLYETHYLENE GLYCOL 17 GM PACKET PO SCH (14:30)
[2016-10-31] MEDS: SOD FERRIC GLUC COMPLX 125 MG in SOD CHLORIDE 0.9% 100 ML IVPB SCH (15:43)
--- NOTE | 2016-10-31 19:39 | RADRPT ---
PROCEDURE: US Lower extremity Venous. CLINICAL INDICATION: Rule out DVT TECHNIQUE: Multiple sonographic images of the left lower extremity deep venous system was obtained utilizing grayscale, color-flow, compressive sonography and doppler imaging with augmentation. The images were reviewed on a PACS workstation. COMPARISON: October 29, 2016 FINDINGS: There is normal compressibility and flow within the left common femoral, deep femoral, superficial f emoral and popliteal veins. The deep veins the calf were incompletely visualized. IMPRESSION: No sonographic evidence for deep venous thrombosis in the left lower extremity. Physician Melchor Date Time Electronically viewed and signed by Physician Melchor on 10/31/2016 19:39 ML/
[2016-10-31 20:08] VITALS: BP 135/69; RESP 20
[2016-11-01] MEDS: NUCYNTA 50 MG PO SCH ×5 (00:06→16:24)
[2016-11-01] MEDS: ONDANSETRON (ODT) 4 MG TAB ODT SCH ×4 (04:04→16:23)
[2016-11-01] MEDS: SOD CHLORIDE 0.9% 1,000 ML IV SCH ×2 (05:23→10:54)
[2016-11-01] MEDS: PIPER-TAZO 3.375 GM IV (PMX) 100 ML IVPB SCH (05:23)
[2016-11-01 05:55] LABS: ADD SCAN DIFF NO
[2016-11-01] MEDS ORDERED: FAMOTIDINE 20 MG TAB PO SCH (06:00)
[2016-11-01 06:11] LABS: BASOPHILS % 0.4 % (0.0-2.0); EOSINOPHILS # 0.3 10^3/ul (0.0-0.5); HEMATOCRIT 29.4 % (37.0-47.0); HEMOGLOBIN 9.3 g/dl (12.0-16.0); LYMPHOCYTES # 1.9 10^3/ul (0.8-2.9); LYMPHOCYTES % 18.1 % (15.0-51.0); MEAN CORPUSCULAR HEMOGLOBIN 26.7 pg (29.0-33.0); MEAN CORPUSCULAR HGB CONC 31.6 g/dl (32.0-37.0); MEAN CORPUSCULAR VOLUME 84.5 fl (82.0-101.0); MEAN PLATELET VOLUME 9.5 fl (7.4-10.4); MONOCYTES % 9.5 % (0.0-11.0); NEUTROPHIL # 7.1 10^3/ul (1.6-7.5); NEUTROPHILS % 68.3 % (39.0-77.0); PLATELET COUNT 544 10^3/UL (140-415); RED BLOOD COUNT 3.48 10^6/ul (4.20-5.40); RED CELL DISTRIBUTION WIDTH 15.9 % (11.5-14.5); WHITE BLOOD COUNT 10.4 10^3/ul (4.8-10.8)
[2016-11-01 07:44] VITALS: BP 121/57; RESP 18
[2016-11-01] MEDS: GABAPENTIN 100 MG CAP PO SCH ×2 (08:24→13:17)
[2016-11-01] MEDS: ENOXAPARIN 40 MG/0.4 ML SYG SC SCH (08:35)
[2016-11-01] MEDS: POLYETHYLENE GLYCOL 17 GM PACKET PO SCH (09:00)
[2016-11-01] MEDS: LOSARTAN 50 MG TAB PO SCH (09:00)
[2016-11-01] MEDS: DOCUSATE SODIUM 100 MG CAP PO SCH (09:00)
--- NOTE | 2016-11-01 09:14 | PN ---
Date/Time of Note Date/Time of Note DATE: 11/01/16 TIME: 09:10 Assessment/Plan VTE Prophylaxis VTE Prophylaxis Intervention: LMWH Lines/Catheters IV [facility]from [facility] Peripheral IV Urinary Cath still in place: No Assessment/Plan Chief Complaint/Hosp Course 1. Acute diverticulitis , on antibiotics , abdominal pain has resolved and she is now having bowel movements. She is feeling much better. Her white blood count is normal. Anticipate that she could be discharged if okay with infectious disease. 2. L knee pain S/P TKR . She is having less knee pain. The knee is not swollen or erythematous the wound is not draining. She had a venous Doppler which was negative for DVT. 3. Hyponatremia , corrected . 4. headache , CT scan of brain is negative headache has resolved. Problems: Subjective 24 Hr Interval Summary Free Text/Dictation She is feeling better today. Her left knee pain is diminished. She had a negative venous Doppler for DVT. She is not having left calf pain today. She had good bowel movement yesterday and her abdomen is not painful at this time. Constitutional: improved, no complaints Gastrointestinal: no complaints Genitourinary: no complaints Musculoskeletal: bone/joint pain Exam/Review of Systems Vital Signs Vitals Vital Signs Date Time Temp Pulse Resp B/P Pulse Ox O2 Delivery O2 Flow Rate FiO2 11/01/16 07:44 98.3 92 18 121/57 92 10/30/16 20:00 Room Air Intake and Output 10/31/16 10/31/16 11/01/16 15:00 23:00 07:00 Intake Total 100 ml 690 ml 1670 ml Output Total 400 ml Balance 100 ml 690 ml 1270 ml Exam Constitutional: alert, oriented Respiratory: clear to auscultation, normal air movement Cardiovascular: nl pulses, regular rate and rhythm Gastrointestinal: non-tender, soft Musculoskeletal: nl extremities to inspection Results Result Diagram: 11/01/16 0458 10/31/16 0435 Results 24 hrs Laboratory Tests Test 11/01/16 04:58 White Blood Count 10.4 Red Blood Count 3.48 L Hemoglobin 9.3 L Hematocrit 29.4 L Mean Corpuscular Volume 84.5 Mean Corpuscular Hemoglobin 26.7 L Mean Corpuscular Hemoglobin Concent 31.6 L Red Cell Distribution Width 15.9 H Platelet Count 544 H Mean Platelet Volume 9.5 Neutrophils % 68.3 Lymphocytes % 18.1 Monocytes % 9.5 Eosinophils % 3.0 Basophils % 0.4 Nucleated Red Blood Cells % 0.0 Neutrophils # 7.1 Lymphocytes # 1.9 Monocytes # 1.0 H Eosinophils # 0.3 Basophils # 0.0 Nucleated Red Blood Cells # 0.0 Medications Medications Current Medications Sodium Chloride (NS) 1,000 ml @ 80 mls/hr [id number] IV Last administered on 11/01 05:23; Admin Dose 80 MLS/HR; Start 10/29/16 at 20:24 Enoxaparin Sodium (Lovenox) 40 mg DAILY SC Last administered on 11/01/16 08:35 ; Admin Dose 40 MG; Start 10/30/16 at 09:00 Docusate Sodium (Colace) 200 mg DAILY PO Last administered on 10/31/16 09:48; Admin Dose 200 MG; Start 10/30/16 at 09:00 Gabapentin (Neurontin) 200 mg TID PO Last administered on 11/01/16 08:24; Admin Dose 200 MG; Start 10/29/16 at 21:00 Losartan Potassium (Cozaar) 100 mg DAILY PO Last administered on 10/31/16 09: 48; Admin Dose 100 MG; Start 10/30/16 at 09:00 Acetaminophen (Tylenol Tab) 650 mg Q4H PRN PO PAIN Last administered on 20:29; Admin Dose 650 MG; Start 10/29/16 at 21:00 Ondansetron HCl 4 mg 4 mg Q4H PRN IV NAUSEA AND/OR VOMITING; Start 10/29/16 at 21:00 Piperacillin Sod/ Tazobactam Sod (Zosyn 3.375gm/ 100 ml (Pmx)) 100 ml @ 200 mls /hr Q6 IVPB Last administered on 11/01/16 05:23; Admin Dose 200 MLS/HR; Start 10/30/16 at 12:00 Magnesium Hydroxide (Milk Of Mag) 30 ml BID PRN PO CONSTIPATION; Start at 17:30 Bisacodyl (Dulcolax Supp) 10 mg DAILY PRN [place] CONSTIPATION; Start 10/30/16 at 17 :30 Famotidine (Pepcid) 20 mg DAILY@06 PO Last administered on 11/01/16 05:24; Admin Dose 20 MG; Start 11/01/16 at 06:00 Ondansetron HCl (Zofran Odt) 4 mg Q4H ODT Last administered on 11/01/16 08:23 ; Admin Dose 4 MG; Start 10/31/16 at 12:00 Patient Own Medication 1 ea 1 ea Q4H PO Last administered on 11/01/16 08:23; Admin Dose 1 EA; Start 10/31/16 at 12:00 Ferric Sodium Gluconate Complex/ Sodium Chloride (Ferrlecit/NS) 110 ml @ 100 mls/hr Q24H IVPB Last administered on 10/31/16 15:43; Admin Dose 100 MLS/HR; Start 10/31/16 at 16:00; Stop 11/02/16 at 17:05 Polyethylene Glycol (Miralax) 17 gm DAILY PO Last administered on 10/31/16 14: 30; Admin Dose 17 GM; Start 10/31/16 at 14:00 KRISTAN MARTE MD Nov 01, 2016 09:14
--- NOTE | 2016-11-01 10:55 | CONS ---
Date/Time of Note Date/Time of Note DATE: 11/01/16 TIME: 10:51 Assessment/Plan Assessment/Plan Chief Complaint/Hosp Course 1) diverticulitis continue with zosyn at present send stool for VRE 10/31 - WBC is back to normal on zosyn alone await better clinical response before changing to po antibiotics 11/01 - pt doing better clinical, normal wbc will change to po augmentin/cipro and continue for one week Rx left with nurse 2) s/p L TKR pt states pain is worse but no sign of cellulitis to site ortho to see patient 10/31 - her ortho doctor does not have privledges here, consider ortho consult regarding L knee pain 11/01 - L knee pain is much better, up walking around no cellulitis appreciated at wound site 3) hx of cervical CA and partial hysterectomy 4) hx of vaginal/rectal prolapse repair 5) hx of appy Problems: Consultation Date/Type/Reason Admit Date/Time Oct 29, 2016 at 17:55 Initial Consult Date 10/30/16 Type of Consultation: ID 24 HR Interval Summary Free Text/Dictation pt is eating ok now abd pain mostly resolved having plenty of stools, no abd cramping able to walk on knee better with ice machine Exam/Review of Systems Vital Signs Vitals Vital Signs Date Time Temp Pulse Resp B/P Pulse Ox O2 Delivery O2 Flow Rate FiO2 11/01/16 07:44 98.3 92 18 121/57 92 10/30/16 20:00 Room Air Intake and Output 10/31/16 10/31/16 11/01/16 15:00 23:00 07:00 Intake Total 100 ml 690 ml 1670 ml Output Total 400 ml Balance 100 ml 690 ml 1270 ml Exam Constitutional: alert, oriented Head: normocephalic Eyes: nl sclera ENMT: mucosa pink and moist Respiratory: clear to auscultation Cardiovascular: regular rate and rhythm Gastrointestinal: non-tender, soft Extremities: other (L knee has bruising but no redness) Results Result Diagram: 11/01/16 0458 10/31/16 0435 Results 24 hrs Laboratory Tests Test 11/01/16 04:58 White Blood Count 10.4 Red Blood Count 3.48 L Hemoglobin 9.3 L Hematocrit 29.4 L Mean Corpuscular Volume 84.5 Mean Corpuscular Hemoglobin 26.7 L Mean Corpuscular Hemoglobin Concent 31.6 L Red Cell Distribution Width 15.9 H Platelet Count 544 H Mean Platelet Volume 9.5 Neutrophils % 68.3 Lymphocytes % 18.1 Monocytes % 9.5 Eosinophils % 3.0 Basophils % 0.4 Nucleated Red Blood Cells % 0.0 Neutrophils # 7.1 Lymphocytes # 1.9 Monocytes # 1.0 H Eosinophils # 0.3 Basophils # 0.0 Nucleated Red Blood Cells # 0.0 Medications Medications Current Medications Sodium Chloride (NS) 1,000 ml @ 80 mls/hr [id number] IV Last administered on 11/01 05:23; Admin Dose 80 MLS/HR; Start 10/29/16 at 20:24 Enoxaparin Sodium (Lovenox) 40 mg DAILY SC Last administered on 11/01/16 08:35 ; Admin Dose 40 MG; Start 10/30/16 at 09:00 Docusate Sodium (Colace) 200 mg DAILY PO Last administered on 10/31/16 09:48; Admin Dose 200 MG; Start 10/30/16 at 09:00 Gabapentin (Neurontin) 200 mg TID PO Last administered on 11/01/16 08:24; Admin Dose 200 MG; Start 10/29/16 at 21:00 Losartan Potassium (Cozaar) 100 mg DAILY PO Last administered on 10/31/16 09: 48; Admin Dose 100 MG; Start 10/30/16 at 09:00 Acetaminophen (Tylenol Tab) 650 mg Q4H PRN PO PAIN Last administered on 20:29; Admin Dose 650 MG; Start 10/29/16 at 21:00 Ondansetron HCl 4 mg 4 mg Q4H PRN IV NAUSEA AND/OR VOMITING; Start 10/29/16 at 21:00 Piperacillin Sod/ Tazobactam Sod (Zosyn 3.375gm/ 100 ml (Pmx)) 100 ml @ 200 mls /hr Q6 IVPB Last administered on 11/01/16 05:23; Admin Dose 200 MLS/HR; Start 10/30/16 at 12:00 Magnesium Hydroxide (Milk Of Mag) 30 ml BID PRN PO CONSTIPATION; Start at 17:30 Bisacodyl (Dulcolax Supp) 10 mg DAILY PRN [place] CONSTIPATION; Start 10/30/16 at 17 :30 Famotidine (Pepcid) 20 mg DAILY@06 PO Last administered on 11/01/16 05:24; Admin Dose 20 MG; Start 11/01/16 at 06:00 Ondansetron HCl (Zofran Odt) 4 mg Q4H ODT Last administered on 11/01/16 08:23 ; Admin Dose 4 MG; Start 10/31/16 at 12:00 Patient Own Medication 1 ea 1 ea Q4H PO Last administered on 11/01/16 08:23; Admin Dose 1 EA; Start 10/31/16 at 12:00 Ferric Sodium Gluconate Complex/ Sodium Chloride (Ferrlecit/NS) 110 ml @ 100 mls/hr Q24H IVPB Last administered on 10/31/16 15:43; Admin Dose 100 MLS/HR; Start 10/31/16 at 16:00; Stop 11/02/16 at 17:05 Polyethylene Glycol (Miralax) 17 gm DAILY PO Last administered on 10/31/16 14: 30; Admin Dose 17 GM; Start 10/31/16 at 14:00 JELANI DIAZ MD Nov 01, 2016 10:55
[2016-11-01] MEDS ORDERED: CIPROFLOXACIN 500 MG TAB PO SCH (11:00)
[2016-11-01] MEDS ORDERED: AMOXICILLIN/CLAV 875 MG TAB PO SCH (12:00)
[2016-11-01] MEDS: SOD FERRIC GLUC COMPLX 125 MG in SOD CHLORIDE 0.9% 100 ML IVPB SCH (16:00)
--- NOTE | 2016-11-04 19:08 | DS ---
DATE OF ADMISSION: 10/29/2016 DATE OF DISCHARGE: 11/01/2016 HISTORY OF PRESENT ILLNESS AND HOSPITAL COURSE: This 71-year-old female came in to the emergency ro with multiple complaints on 10/29/2016, the day of admission. The patient complained of chest pa in, bilateral arm numbness, generalized weakness and fatigue. The patient also had some lower abdom inal pain. She was seen in the emergency room by Dr. Mejias. He did a complete workup and found that the patient had acute diverticulitis as seen on a CAT scan of the abdomen done in the emergency steffany . This showed acute distal descending colon diverticulitis. There was no evidence of drainable ab scess. The patient also had some chest pain and shortness of breath, and she had a ventilation perf usion lung scan which was low probability for pulmonary embolism. The patient also had a severe hea dache and had a brain CT which showed no acute intracranial findings. The patient was 10 days posto p a left total knee replacement by Dr. Carlos A Campbell. She was complaining of left knee pain. The re was no acute radiologic evidence of acute osseous abnormalities and the left knee arthroplasty wa s in good anatomical alignment. The patient also had lower extremity venous studies which did not s how DVT. The patient was admitted with a diagnosis of acute diverticulitis. She was started on int ravenous Zosyn. The patient was anemic. The patient was started on Lovenox for DVT prophylaxis. T he patient eventually started back on physical therapy for her left knee. Over the next several day s, the patient showed considerable improvement. She was up walking with physical therapy. The frida ent was also seen in consultation by Dr. Israel Fontana, a local infectious disease specialist. The p rika was to be seen by ortho, however, her surgeon said that he did not have privileges at [facility]. I did speak to his physician's vector control assistant, who did give some direction about how to ca re for her knee prosthesis. Dr. Fontana did look at the patient's knee and he and I both felt that the re was no evidence of cellulitis. As mentioned, the patient did well. She started to have bowel mo vements and was overall in good condition at the time of discharge. She will be discharged on her r outine medications. She will also continue Augmentin 875 mg twice a day for 1 more week, and she wi ll also take Cipro 500 mg twice a day for 1 week. The patient is to follow up with Dr. Adrian rush/or his physician's vector control assistant the day after discharge. The patient did receive intravenous iron wh ile in the hospital because of iron deficiency anemia. DISCHARGE DIAGNOSES: 1. Acute diverticulitis. 2. Status post recent left total knee replacement 10 days prior to admission. 3. Hypertension. 4. Iron deficiency anemia. 5. Hyponatremia, corrected with IV saline. Dictated By: KRISTAN MARTE MD, ND/SHENG Conf#: [id number] DID#: [id number]
== END 2016-11-01 17:20 | disposition home health service (06) | DRG 392 ==
LOC: E/R 11:58 → MS4 17:55 → MS1 10-30 23:39
PROVIDERS: ADMIT Internal Medicine; ATTEND Internal Medicine
DX: K57.32 Diverticulitis of large intestine without perforation or abscess without bleeding (principal); R06.00 Dyspnea, unspecified; E87.1 Hypo-osmolality and hyponatremia; I10 Essential (primary) hypertension; D50.9 Iron deficiency anemia, unspecified; K21.9 Gastro-esophageal reflux disease without esophagitis; D64.9 Anemia, unspecified; F41.9 Anxiety disorder, unspecified; G89.18 Other acute postprocedural pain; R51 Headache; R42 Dizziness and giddiness; Z96.652 Presence of left artificial knee joint; Z98.890 Other specified postprocedural states; Z88.8 Allergy status to other drugs, medicaments and biological substances; Z85.41 Personal history of malignant neoplasm of cervix uteri
CPT/HCPCS: 36415; 70450; 71010; 73562; 74176; 78582; 80053; 81003; 82550; 82553; 82728; 83540; 83690; 83735; 84100; 84300; 84484; 85025; 85378; 85610; 85730; 93005; 93971; 96365; 96368; 96372; 96375; 96376; 97116; 97162; 97530; A9540; J0131; J1650; J2405; J2543; J2916; J3010; J7030; Q9967